=== PATIENT | female | born 1995 | race Two or more races ===

== ENCOUNTER → 2016-12-29 | Outpatient (REF) | payer OTHER | LOC: M SFHCLERA 12:07 | PROVIDERS: ATTEND Nurse Practitioner Family | DX: R30.0 Dysuria (principal) ==

== ENCOUNTER → 2017-02-04 | Outpatient (REF) | payer OTHER | LOC: M LAB REF 14:05 | PROVIDERS: ATTEND Physician Assistant Surgical | DX: R19.4 Change in bowel habit (principal) ==

== ENCOUNTER → 2017-03-03 | Outpatient (CLI) | payer OTHER | LOC: M LRY 16:15 | PROVIDERS: ATTEND Family Medicine | DX: R63.1 Polydipsia (principal) ==

== ENCOUNTER → 2017-04-05 | Outpatient (CLI) | payer OTHER | LOC: M LRY 09:28 | PROVIDERS: ATTEND Internal Medicine Gastroenterology | DX: R19.4 Change in bowel habit (principal) ==

== ENCOUNTER → 2017-11-22 | Outpatient (REF) | payer OTHER | LOC: M LAB REF 12:17 | DX: R19.4 Change in bowel habit (principal); R19.7 Diarrhea, unspecified; R59.0 Localized enlarged lymph nodes | CPT/HCPCS: 82705 ==

== ENCOUNTER 2018-09-29 07:49 | Emergency (ER) | payer OTHER ==
[~2018-09-29] VITALS: Ht 175.3 cm; Wt 66.9 kg
[2018-09-29 07:49] VITALS: BP 120/77
[2018-09-29] MEDS ORDERED: TRINTAB (07:59)
== END 2018-09-29 08:25 | disposition home or self-care (01) ==
LOC: M ED 07:49
DX: T19.2XXA Foreign body in vulva and vagina, initial encounter (principal); X58.XXXA Exposure to other specified factors, initial encounter; Y92.89 Other specified places as the place of occurrence of the external cause; Z88.0 Allergy status to penicillin; Z79.3 Long term (current) use of hormonal contraceptives